=== PATIENT | female | born 1950 | race Caucasian/White ===

== ENCOUNTER 2017-04-29 12:58 | Emergency (ER) | payer MEDICARE ==
[~2017-04-29] VITALS: Ht 142.2 cm; Wt 52.0 kg
[2017-04-29 13:00] VITALS: Ht 142.2 cm; Wt 52.0 kg
[2017-04-29] MEDS ORDERED: ONDANSETRON 4 MG INJ IV STA (13:31)
[2017-04-29 14:03] LABS: ADD SCAN DIFF NO
[2017-04-29 14:06] LABS: BASOPHILS % 0.3 % (0.0-2.0); EOSINOPHILS % 0.2 % (0.0-7.0); HEMATOCRIT 42.6 % (37.0-47.0); HEMOGLOBIN 15.1 g/dl (12.0-16.0); LYMPHOCYTES # 2.8 10^3/ul (0.8-2.9); LYMPHOCYTES % 23.7 % (15.0-51.0); MEAN CORPUSCULAR HEMOGLOBIN 30.7 pg (29.0-33.0); MEAN CORPUSCULAR HGB CONC 35.4 g/dl (32.0-37.0); MEAN CORPUSCULAR VOLUME 86.6 fl (82.0-101.0); MEAN PLATELET VOLUME 10.1 fl (7.4-10.4); MONOCYTE # 0.6 10^3/ul (0.3-0.9); MONOCYTES % 5.2 % (0.0-11.0); NEUTROPHIL # 8.4 10^3/ul (1.6-7.5); NEUTROPHILS % 70.3 % (39.0-77.0); PLATELET COUNT 221 10^3/UL (140-415); RED BLOOD COUNT 4.92 10^6/ul (4.20-5.40); RED CELL DISTRIBUTION WIDTH 12.1 % (11.5-14.5)
--- NOTE | 2017-04-29 14:13 | RADRPT ---
PROCEDURE: CT Head without contrast. CLINICAL INDICATION: Visual changes TECHNIQUE: The study was performed utilizing a GE 64-slice multidetector CT scanner. Direct spiral axial CT images of the brain were obtained from the vertex to the skull base without contrast. Cor onal and sagittal reformat images are provided. The CTDI vol is 44.88 mGy and the DLP is 630.2 mGy- cm. The images were reviewed on a PACS workstation. COMPARISON: No prior studies are available for comparison. FINDINGS: The ventricles and cortical sulci are within normal limits for the patient's age. The chavse-white ma tter differentiation is maintained. No intra or extra-axial fluid collection or mass effect or shif t in the midline structures is seen. The visualized paranasal sinuses, mastoid air cells, orbits, a nd calvarium are unremarkable. IMPRESSION: No acute intracranial pathology. RPTAT: HPNM Physician Ondina Date Time Electronically viewed and signed by Physician Ondina on 04/29/2017 14:12 /
[2017-04-29 14:15] LABS: ADD UMIC YES; UR ASCORBIC ACID NEGATIVE (NEGATIVE); UR BILIRUBIN (Dip) NEGATIVE (NEGATIVE); UR BLOOD (Dip) NEGATIVE (NEGATIVE); UR CLARITY SLIGHTLY CLOUDY (CLEAR); UR COLOR YELLOW (YELLOW); UR GLUCOSE (Dip) NEGATIVE (NEGATIVE); UR KETONES (Dip) 2+ mg/dL (NEGATIVE); UR LEUKOCYTE ESTERASE (Dip) TRACE Leu/ul (NEGATIVE); UR MUCUS FEW /HPF (NONE SEEN); UR NITRITE (Dip) NEGATIVE (NEGATIVE); UR RBC 1 /HPF (0-5); UR SPECIFIC GRAVITY (Dip) 1.018 (1.003-1.030); UR TOTAL PROTEIN (Dip) NEGATIVE (NEGATIVE); UR UROBILINOGEN (Dip) NEGATIVE (NEGATIVE)
--- NOTE | 2017-04-29 14:15 | RADRPT ---
PROCEDURE: CT of the orbits CLINICAL INDICATION: Visual changes TECHNIQUE: Using a [employer] light speed [address] scanner, multiple axial CT images of the orbits were obtained without contrast. Coronal and sagittal reformatted images were provided. The CTDI vol is 28.77 mGy and the DLP is 266.95 mGy-cm. The images were reviewed on a high-resolution PACS workstat ion. COMPARISON: None FINDINGS: No acute fracture or dislocation is seen. The osseous structures are well mineralized. No fluid co llections are seen. The globes are symmetric in appearance. The optic nerves are normal in course and caliber. The extraocular muscles are intact. No intra or extraconal mass is seen. Very mild mu cosal thickening is seen in the right sphenoid sinus. The remaining visualized paranasal sinuses an d mastoid air cells are clear. IMPRESSION: No CT evidence for acute pathology in the orbits. RPTAT: HPNM Physician Ondina Date Time Electronically viewed and signed by Physician Ondina on 04/29/2017 14:15 /
[2017-04-29 14:24] LABS: ALBUMIN 4.8 g/dl (3.3-4.9); ALBUMIN/GLOBULIN RATIO 1.26; BILIRUBIN,INDIRECT 0.9 mg/dl (0-1.1); BILIRUBIN,TOTAL 0.9 mg/dl (0.2-1.3); CALCIUM 9.7 mg/dl (8.4-10.2); CREATININE 0.54 mg/dl (0.44-1.00); POTASSIUM 4.4 mmol/L (3.5-5.1); TOTAL PROTEIN 8.6 g/dl (6.1-8.1)
--- NOTE | 2017-04-29 15:57 | RADRPT ---
PROCEDURE: CT Abdomen and Pelvis without contrast. CLINICAL INDICATION: Abdominal pain TECHNIQUE: CT scan of the abdomen and pelvis without contrast was performed on a multidetector hig h-resolution CT scanner. The patient was scanned without intravenous contrast. Coronal and sagittal reformatted images were obtained from the axial source images. Images were reviewed on a high-resol [employer] PACS workstation. The total exam CTDI equals 6.02 mGy and the total exam DLP equals 329.91 mGy -cm. One or more of the following dose reduction techniques were used: Automated exposure control. Adjustment of the mA and/or kV according to patient size. Use of iterative reconstruction technique. COMPARISON: None FINDINGS: CT abdomen: The lung bases are remarkable for focal bronchiectasis in the anterior medial right lung base. The heart size is normal, without pericardial thickening or effusion. The liver is normal in size and d ensity without focal mass or intrahepatic biliary dilatation. The spleen is normal in size and homo geneous in density. The stomach is partially collapsed, but is grossly unremarkable. The pancreas as visualized is normal. There is air in the gallbladder and the biliary tree. The adrenal glands ar e symmetric and normal. The kidneys are symmetrically unremarkable as well. No renal calculus or o bstructive uropathy or mass lesion is seen. The aorta is of normal caliber. Aortic vascular calcifications are present. There is no retroperit coffman lymphadenopathy. The cal hepatis region is clear. The bowel and mesentery, as visualized, are equally unremarkable. CT pelvis: The small bowel loops situated within the pelvis are unremarkable. There is a normal appendix. The pelvic organs are normal. The pelvic sidewalls and inguinal regions are clear. The sigmoid colon a nd rectum are unremarkable. No mass, lymphadenopathy, or free fluid is seen. No acute inflammation is seen. The surrounding osseous structures are remarkable for degenerative spondylosis of the spi ne. No osteolytic or osteoblastic lesion is detected. IMPRESSION: 1. No mass, lymphadenopathy, or focal acute inflammatory process is identified. 2. Normal appendix. 3. Air in the biliary tree and the gallbladder. This could be related to oddi sphincter dysfunctio n or recent instrumentation. Correlate with clinical history. 4. Normal caliber small bowel with no small bowel obstruction. 5. Scattered aortic vascular calcifications. 6. Focal bronchiectasis in the medial right lung base. RPTAT: BB .Justin Monae MD, MD Date Time Electronically viewed and signed by .Justin Monae MD, MD on 04/29/2017 15:57 .O/
--- NOTE | 2017-04-29 16:08 | RADRPT ---
PROCEDURE: CT Chest. CLINICAL INDICATION: Dyspnea and shortness of breath. TECHNIQUE: CT scan of the chest without contrast was performed on the [employer] volumetric [address] [facility] without contrast. Coronal and sagittal reformatted images were obtained from the axial source images. The CTDI vol is 5.62 mGy and the DLP is 198.82 mGy-cm. COMPARISON: None. FINDINGS: Minimal scarring is seen in the lingula. No dense consolidation or pleural effusion is seen. Diffu se bronchiectasis is seen with peribronchial thickening. The mediastinum and hilum are unremarkable without evidence for mass or lymphadenopathy. Aortic calcifications are seen. The vascular structu res of the mediastinum are otherwise unremarkable in course and caliber. The heart size is normal w ithout evidence for pericardial thickening or effusion. The axillary regions, subpectoral regions, and supraclavicular regions are all unremarkable. For the findings in the upper abdomen, please ref er to the CT of the abdomen and pelvis report from 04/29/2017. Diffuse osteopenia is seen. No oste olytic or osteoblastic lesion is detected. IMPRESSION: 1. Evidence of chronic bronchitis as described above. 2. Otherwise, no CT evidence for acute pathology in the chest. 3. For the findings in the upper abdomen, please refer to the CT of the abdomen and pelvis report f rom 04/29/2017. RPTAT: HPNM Physician Ondina Date Time Electronically viewed and signed by Physician Ondina on 04/29/2017 16:08 /
[2017-04-29 19:13] VITALS: BP 165/80; PULSE 67; RESP 18; TEMP 98.1
--- NOTE | 2017-04-29 19:27 | RADRPT ---
PROCEDURE: MR venogram Brain. CLINICAL INDICATION: Cranial nerves III palsy TECHNIQUE: An MR venogram of the brain was performed on a Signa 3 bon scanner 2-D [id number]-[id number] MR angiography technique. Sagittal phase contrast sequences were also acquired with a VENC of 15 a nd 60. Source and MIP images were reviewed. COMPARISON: CT head and orbits 04/29/2017 FINDINGS: The superior sagittal sinus is patent with normal flow related enhancement and no filling defects. The straight sinus and transverse sinuses are patent and without gross filling defects. The sigmoid sinuses and jugular bulbs are grossly unremarkable. The major cortical draining veins demonstrate flow related enhancement without gross filling defects. RPTAT:HJJR IMPRESSION: Unremarkable MR venogram of the brain. Physician Danis Date Time Electronically viewed and signed by Physician Danis on 04/29/2017 19:27 /
--- NOTE | 2017-04-29 19:29 | RADRPT ---
PROCEDURE: MRA Neck without contrast. CLINICAL INDICATION: Cranial nerve III palsy TECHNIQUE: An MRA of the major cervical arteries was performed on the Signa 3 bon scanner utili zing axial 2D time of flight technique. Source and MIP images were reviewed. COMPARISON: None available FINDINGS: The visualized great vessels arising off of the aortic arch appear patent and normal in caliber. Th e common carotid arteries are patent and normal in caliber bilaterally. The carotid bifurcations ar e patent and the internal carotid arteries are patent and normal in caliber bilaterally. The verteb ral arteries are patent and normal in caliber bilaterally. No evidence for dissection is seen. RPTAT:HJJR IMPRESSION: Unremarkable noncontrast MRA of the neck. Physician Danis Date Time Electronically viewed and signed by Physician Danis on 04/29/2017 19:29 /
[2017-04-29] MEDS ORDERED: FAMO-18 PO (19:48)
[2017-04-29] MEDS ORDERED: ONDA8TAB14 PO (19:48)
--- NOTE | 2017-04-29 19:55 | ERD ---
ER Documentation Chief Complaint Date/Time DATE: 04/29/17 TIME: 19:51 Chief Complaint N/V x today denies fever, diarrhea or constipation HPI This 58-year-old female presents with intermittent vomiting for last week. Additional history of fevers she given abdominal pain or diarrhea urinary complaints. She is here with her daughter. They presented emergency room last week and had negative studies according the daughter was told she had diabetes was placed on Glucophage. She's also had some inability to open her left eye and blurry vision as well. She does not have primary care and she has not had significant medical care up until the last week. She denies chest pain or shortness of breath. ROS All systems reviewed and are negative except as per history of present illness. Medications Home Meds Active Scripts Famotidine* (Pepcid*) 20 Mg Tablet, 20 MG PO BID for 10 Days, #20 TAB Prov:JAUN ESQUIVEL MD 04/29/17 Ondansetron (Ondansetron Odt) 8 Mg Tab.rapdis, 8 MG PO Q6H Y for NAUSEA AND/OR VOMITING, #10 TAB Prov:JAUN ESQUIVEL MD 04/29/17 Allergies Allergies: Coded Allergies: No Known Allergy (Unverified , 04/29/17) PMhx/Soc History of Surgery: Yes () Hx Cardiac Disorders: Yes (HTN) Hx Miscellaneous Medical Probl: Yes (DM) Hx Alcohol Use: No Hx Substance Use: No Hx Tobacco Use: No Smoking Status: Never smoker Physical Exam Vitals Vital Signs Date Time Temp Pulse Resp B/P Pulse Ox O2 Delivery O2 Flow Rate FiO2 04/29/17 19:13 98.1 67 18 165/80 98 Room Air 04/29/17 13:00 97.9 88 18 179/81 Physical Exam Const: [] Alert, not ill-appearing. Head: Atraumatic Eyes: Normal Conjunctiva. Patient has ptosis of the left eyelid. Patient has lateral movement of her left eye but no significant superior, inferior or medial movement. Difficult to assess accommodation or myosis. ENT: Normal External Ears, Nose and Mouth. Neck: Full range of motion..~ No meningismus. Resp: Clear to auscultation bilaterally Cardio: Regular rate and rhythm, no murmurs Abd: Soft, non tender, non distended. Normal bowel sounds Skin: No petechiae or rashes Back: No midline or flank tenderness Ext: No cyanosis, or edema Neur: Awake and alert. Patient appears to have an isolated counter 3 palsy on the left. no additional deficits appreciated. Psych: Normal Mood and Affect Result Diagram: 04/29/17 1345 04/29/17 1345 Results 24 hrs Laboratory Tests Test 04/29/17 13:40 04/29/17 13:45 Urine Color YELLOW Urine Clarity SLIGHTLY CLOUDY Urine pH 5.0 Urine Specific [place] 1.018 Urine Ketones 2+mg/dL Urine Nitrite NEGATIVEmg/dL Urine Bilirubin NEGATIVEmg/dL Urine Urobilinogen NEGATIVEmg/dL Urine Leukocyte Esterase TRACELeu/ul Urine Microscopic RBC 1/HPF Urine Microscopic WBC 1/HPF Urine Mucus FEW/HPF Urine Hemoglobin NEGATIVEmg/dL Urine Glucose NEGATIVEmg/dL Urine Total Protein NEGATIVEmg/dl White Blood Count 12.010^3/ul Red Blood Count 4.9210^6/ul Hemoglobin 15.1g/dl Hematocrit 42.6% Mean Corpuscular Volume 86.6fl Mean Corpuscular Hemoglobin 30.7pg Mean Corpuscular Hemoglobin Concent 35.4g/dl Red Cell Distribution Width 12.1% Platelet Count 12223^3/UL Mean Platelet Volume 10.1fl Neutrophils % 70.3% Lymphocytes % 23.7% Monocytes % 5.2% Eosinophils % 0.2% Basophils % 0.3% Nucleated Red Blood Cells % 0.0/100WBC Neutrophils # 8.410^3/ul Lymphocytes # 2.810^3/ul Monocytes # 0.610^3/ul Eosinophils # 0.010^3/ul Basophils # 0.010^3/ul Nucleated Red Blood Cells # 0.010^3/ul Sodium Level 136mmol/L Potassium Level 4.4mmol/L Chloride Level 96mmol/L Carbon Dioxide Level 25mmol/L Anion Gap 19 Blood Urea Nitrogen 14mg/dl Creatinine 0.54mg/dl Glucose Level 151mg/dl Calcium Level 9.7mg/dl Total Bilirubin 0.9mg/dl Direct Bilirubin 0.00mg/dl Indirect Bilirubin 0.9mg/dl Aspartate Amino Transf (AST/SGOT) 39IU/L Alanine Aminotransferase (ALT/SGPT) 46IU/L Alkaline Phosphatase 122IU/L Total Protein 8.6g/dl Albumin 4.8g/dl Globulin 3.80g/dl Albumin/Globulin Ratio 1.26 Lipase 369U/L Current Medications Medications (Trade) Dose Ordered Sig/Mallory Route PRN Reason Start Time Stop Time Status Last Admin Dose Admin Ondansetron HCl (Zofran Inj) 4 mg ONCE STAT IV 04/29/17 13:31 04/29/17 13:35 DC 04/29/17 13:51 Procedures/MDM IV was obtained. Patient is CBC with a white count of 12 otherwise normal. CMP shows no acute abnormalities. Lipase is elevated into the 300s. CT abdomen and pelvis shows no acute findings. CT brain or which showed no acute findings given the cramping 3 palsy. Given the concern for pain or 3 palsy of uncertain etiology are brain and neck and MRV of brain was performed which shows no acute abnormalities. Patient was given Zofran 4 modems IV and 1 L normal saline IV. Intraocular pressure was 29 bilaterally. Patient had 20/70 vision of the effected eye redness and 20/100 over unaffected eye. Slit. EKG: Rate/Rhythm: [Normal Sinus Rhythm] rate equals 76 QRS, ST, T-waves: [No changes consistent w/ acute ischemia] Impression: [No evidence of ischemia or arrhythmia] Patient presents with intermittent vomiting for last week of uncertain etiology. Patient was pretty status to diabetes with blood sugars normal today. She'll be discharged home with her care and neurology and ophthalmology follow- up. Patient is referred to [facility] for primary care as well. [facility] symptoms does not suggest dural sinus thrombosis, carotid dissection, chest lesions to suggest Alexandre's syndrome or acute cause of pain actually palsy. The vomit does not appear to be result of obstruction, acute abdomen, acute coronary syndrome, additional emergent causes. Patient is pleasant and well- appearing. Patient is advised to recheck for new or worsening symptoms or with primary care doctor this week. 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 Un estudio ms profundo y el tratamiento de sykes condicin pueden esperar sin ningn riesgo hasta que usted sea atendida/o en el consultorio de sykes mdico o angeline cl tex. Es responsabilidad suya arreglar angeline toma para el seguimiento del matthew. MANEJO DE CONDICIONES NO URGENTES EN EL FUTURO 1) Si usted tiene un mdico de atencin primaria: Usted debera llamar a sykes mdico de atencin primaria antes de venir al departamento de emergencia. Despus de las horas de consultorio, sykes doctor o sykes asociado/a est disponible por telfono. El mdico o enfermero de tian en el servicio telefnico puede asesorarle por jayda medio para atender el problema, o matthew contrario se puede programar angeline toma. 2) Si usted no tiene un mdico de atencin primaria: Llame al mdico o clnica de referencia que aparece abajo benita las horas de consultorio para hacer angeline toma para que le vean. CLINICAS: [facility] [phone] [facility] [phone] [facility] [phone] [facility] [phone] [place] [phone] [facility]. [phone] [address] [facility] AL[place]IA RDEdwige [facility] Hours: Mon - Fri 9:00 AM - 5:00 PM Additional Instructions: No acute findings to explain symptoms today. Follow up with neurology as well as ophthalmology for further evaluation and treatment. Recheck otherwise for new or worsening symptoms. Blood sugar normal today. Okay to hold Glucophage or diabetes medication until see primary doctor. JAUN ESQUIVEL MD Apr 29, 2017 19:55
== END 2017-04-29 20:32 | disposition home or self-care (01) ==
LOC: FTE 12:58 → EDBD 12:58 → FTE 20:32
DX: H49.02 Third [oculomotor] nerve palsy, left eye (principal); R11.10 Vomiting, unspecified; I10 Essential (primary) hypertension; E11.9 Type 2 diabetes mellitus without complications
CPT/HCPCS: 36415; 70450; 70480; 70544; 70549; 71250; 74176; 80053; 81001; 83690; 85025; 93005; 96374; 99285; J2405